=== PATIENT | female | born 1960 ===

== ENCOUNTER 2016-05-18 07:38 | Day surgery (SDC) | payer OTHER ==
[2016-05-18] MEDS ORDERED: ASPIRIN EC 325 MG TAB PO ONE (07:41)
[2016-05-18] MEDS ORDERED: NS 1,000 ML IV ONE (07:41)
[2016-05-18] MEDS ORDERED: DIAZEPAM 5 MG TAB PO ONE (07:41)
[2016-05-18] MEDS ORDERED: diphenhydrAMINE 25 MG CAP PO ONE ×2 (07:41→08:28)
[2016-05-18] MEDS ORDERED: FAMOTIDINE 20 MG TAB PO ONE (07:41)
--- NOTE | 2016-05-18 08:08 | CPEKG ---
Heart Rate: 66 RR Interval: 909 P-R Interval: 156 QRSD Interval: 82 QT Interval: 400 QTC Interval: 420 P Kinmundy: 57 QRS Kinmundy: 71 T Wave Kinmundy: 63 EKG Severity - BORDERLINE ECG - EKG Impression: SINUS RHYTHM EKG Impression: BORDERLINE T ABNORMALITIES, ANT-LAT LEADS Electronically Signed By: James Wilks 19-May-2016 17:00:49
[2016-05-18] MEDS ORDERED: FAMOTIDINE 20 MG TAB ONE (08:28)
[2016-05-18 08:29] LABS: % IMMATURE GRANULYOCYTES 0.2 % (0.0-1.1); ABSOLUTE IMMATURE GRANULOCYTES 0.02 10^3/uL (0.00-0.10); ADD DIFF? NO; ADD MORPH? NO; ADD SCAN? NO; ATYPICAL LYMPHOCYTE FLAG 10 (0-99); FRAGMENT RBC FLAG 0 (0-99); HEMOGLOBIN 13.7 g/dL (12.6-16.3); LEFT SHIFT FLG 0 (0-99); LIPEMIA HEMOLYSIS FLAG 90 (0-99); MEAN CELL HEMOGLOBIN 30.6 pg (27.9-34.1); MEAN CELL HEMOGLOBIN CONCENTR. 34.3 g/dL (32.4-36.7); MEAN CELL VOLUME 89.3 fL (81.5-99.8); PLATELET CLUMPS FLAG 10 (0-99); PLATELET COUNT 236 10^3/uL (150-400); RED BLOOD CELL COUNT 4.48 10^6/uL (4.18-5.33); RED CELL DISTRIBUTION WIDTH 13.5 % (11.5-15.2)
[2016-05-18] MEDS ORDERED: DIAZEPAM 5 MG TAB ONE (08:29)
[2016-05-18] MEDS ORDERED: ASPIRIN EC 81 MG TAB PO ONE (08:30)
[2016-05-18 08:40] LABS: ANION GAP 9 mEq/L (8-16); CALCIUM 9.5 mg/dL (8.5-10.4); CARBON DIOXIDE 29 mEq/l (22-31); CHLORIDE 101 mEq/L (97-110); CHOLESTEROL 215 mg/dL (140-220); CHOLESTEROL/HDL RATIO 6.14 RATIO (1.00-4.44); CREATININE 0.9 mg/dL (0.6-1.0); GLOMERULAR FILTRATION RATE > 60; GLUCOSE 121 mg/dL (70-100); HIGH DENSITY LIPOPROTEIN 35 mg/dL (40-85); LDL/HDL RATIO 4.14 RATIO (1.00-3.22); LOW DENSITY LIPOPROTEIN 145 mg/dL (80-100); MAGNESIUM 2.4 mg/dL (1.6-2.3); NON-HIGH DENSITY LIPOPROTEIN 180 mg/dL (90-129); POTASSIUM 3.8 mEq/L (3.5-5.2); SODIUM 139 mEq/L (134-144); TRIGLYCERIDE 177 mg/dL (35-135); VERY LOW DENSITY LIPOPROTEINS 35 mg/dL (8-25)
[2016-05-18 08:48] LABS: INR 0.99 (0.83-1.16)
[2016-05-18] MEDS ORDERED: MIDAZOLAM 2 MG/2 ML VIAL ONE (09:01)
[2016-05-18] MEDS ORDERED: LIDOCAINE 1% 30 ML SDV ONE (09:01)
[2016-05-18] MEDS ORDERED: HEPARIN 10,000 UNIT/10 ML MDV ONE (09:01)
[2016-05-18] MEDS ORDERED: VERAPAMIL 5 MG/2 ML VIAL ONE (09:01)
[2016-05-18] MEDS ORDERED: IOPAMIDOL (ISOVUE-370) 150 ML BTL IV ONE (09:01)
[2016-05-18] MEDS ORDERED: fentaNYL 100 MCG/2 ML INJ ONE (09:01)
[2016-05-18] MEDS ORDERED: ATROPINE SULFATE 1 MG/10 ML SYR IVP PRN (09:59)
[2016-05-18] MEDS ORDERED: ONDANSETRON 4 MG/2 ML VIAL IVP PRN (09:59)
[2016-05-18] MEDS ORDERED: OXYCODONE/APAP 5/325 TAB PO PRN (09:59)
[2016-05-18] MEDS ORDERED: HYDROCODONE/APAP 5/325 TAB PO PRN (09:59)
[2016-05-18] MEDS ORDERED: NITROGLYCERIN 0.4 MG BTL SL PRN (09:59)
--- NOTE | 2016-05-18 10:05 | PDDXCAT ---
Diagnostic Cath Note - . Date: 05/18/16 Storeroom Attendant: King Indication: CCC Class III and IV angina on medical treatment - Procedure Access: left wrist Procedure: left heart catheterization, coronary angiography, left ventriculogram , right heart catheterization - Materials Left Heart Cath size: 5F Left Heart Cath materials: JL3.5, JR4.0, pigtail Right Heart Cath size: 5F - Findings-Left Heart Catheterization LM: Normal LAD: 100% obstructed within prior stent. 100% occlusion of a large principal diagonal. Left to left, right to left collaterals LCX: unobstructed RCA: 30-40% luminal irregularities proximally. Right coronary artery stent widely patent Ramus: unobstructed EDP: 15 mm of mercury LVEF: 60% Wall motion: normal - Findings-Right Heart Catheterization RA: 8 mm of mercury RV: 52/8 mm of mercury PAOP: 54/20 mm of mercury with systemic pressure 151 AO: 151/80 mm of mercury CO: 6.78 liters/minute CI: 3.08 liters/minute per meter squared Complications: none Estimated blood loss: <50ml Closure method: TR Band Assessment: Severe proximal LAD disease with complete occlusion within prior stent as well as complete occlusion of principal diagonal with collaterals. ( Of note patient is had restenosis within the stent at least once before.). Preserved LV systolic function with normal filling pressures. Systemic hypertension with secondary pulmonary hypertension. Plan: In light of significant symptoms with complete occlusion of the LAD and principal diagonal would recommend 2 vessel coronary artery bypass grafting as principal strategy. Surgical consultation will be obtained. If the patient declines would consider attempt at revascularization percutaneously. I would estimate success at 60%. Plan for abdominal ultrasound to assess for renal artery stenosis in the setting of significant hypertension. Plan for assessment of the abdominal aorta. Continue current medical therapy. Continue aggressive secondary prevention. Patient Problems: Problems Problem Status Onset Hyperlipidemia Acute Pulmonary hypertension associated with systemic disorder Acute Hypertension Acute Status post insertion of drug eluting coronary artery stent Acute Coronary artery disease Acute
--- NOTE | 2016-05-18 16:35 | GCON ---
DATE OF CONSULTATION: 05/18/2016 The patient is seen at the request of Dr. Malik with the patient's permission. IMPRESSION: 1. Severe 2-vessel disease with class 3 angina. 2. Obesity, mild. 3. Chronic obstructive pulmonary disease with longstanding cigarette abuse. 4. Recent history of fluid retention requiring diuretics. RECOMMENDATIONS: This very pleasant lady should undergo coronary artery revascularization to the LA D in the right coronary system. Will attempt to use arterial conduits if able for both vessels. We will also ligate her left atrial appendage. The risks, complications and alternatives were reviewe d at length with the patient and her . All questions were answered. They seemed satisfied w ith our discussion. She will be scheduled for surgery in the next 7 days. CHIEF COMPLAINT: This is a pleasant 56-year-old woman who has had a longstanding cardiac history wi th a stent multiple times to the right and left system. She denies a chronically occluded LAD which is filled by collaterals from the right which has high-grade disease as well. Her circumflex is op en. She was started on hydrochlorothiazide with marked improvement of her dyspnea on exertion by he r family doctor; however, still has exertional chest discomfort and shortness of breath which is new as well as intermittent chest discomfort with exertion. MEDICAL HISTORY: As stated. SURGERIES: Include coronary stents and hysterectomy. MEDICATIONS: Adderall, baby aspirin, Co Q10, Demadex, fish oil, metoprolol and vitamin C. ALLERGIES: Statins which cause a cough and a rash. SOCIAL HISTORY: She has infrequent alcohol abuse. She smokes 1/2 to 1 pack of cigarettes per day. Denies history of COPD and does not wear oxygen. 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 REVIEW OF SYSTEMS: At the present time, she denies all complaints. All 10 systems were interrogate d except for chief complaint. PHYSICAL EXAMINATION: GENERAL: This is a moderately overweight, pleasant 56-year-old female, lying supine. Blood pressure is 140/86, respirations 14. HEENT: Normocephalic, PERRLA, EOMI. NECK: W ithout bruit, adenopathy or thyromegaly. HEART: Rate is regular without murmur, S3 or S4. Echo sh ows good valvular and ventricular function. Please see cath report for details. ABDOMEN: Soft, no ntender. Bowel sounds are active. RECTAL AND GENITAL: Deferred. Pedal pulses are 1+ and symmetri sinai. She has trace pretibial edema. /[id number]/MODL
== END 2016-05-18 14:57 | disposition home or self-care (01) ==
LOC: FCATH 07:38
PROVIDERS: ATTEND Internal Medicine Interventional Cardiology
PROC: B2111ZZ Fluoroscopy of Multiple Coronary Arteries using Low Osmolar Contrast (ICD-10-PCS; principal; 2016-05-18)
PROC: 4A023N8 Measurement of Cardiac Sampling and Pressure, Bilateral, Percutaneous Approach (ICD-10-PCS; principal; 2016-05-18)
PROC: B2151ZZ Fluoroscopy of Left Heart using Low Osmolar Contrast (ICD-10-PCS; principal; 2016-05-18)
DX: T82.855A Stenosis of coronary artery stent, initial encounter (principal); I25.119 Atherosclerotic heart disease of native coronary artery with unspecified angina pectoris; Z72.0 Tobacco use; E66.9 Obesity, unspecified; J44.9 Chronic obstructive pulmonary disease, unspecified; K76.0 Fatty (change of) liver, not elsewhere classified
CPT/HCPCS: 71010; 76770; 93005; 93460; 93880; C1769; J1644; J2250; J3010; Q9967

== ENCOUNTER → 2016-05-21 | Outpatient (CLI) | payer OTHER ==
[~2016-05-21] MED LIST: IOPAMIDOL (ISOVUE 370) 100 ML BTL IV ONE
== END ==
LOC: CIMAGING 13:33
PROVIDERS: ATTEND Internal Medicine Interventional Cardiology
DX: I65.23 Occlusion and stenosis of bilateral carotid arteries (principal); I67.2 Cerebral atherosclerosis; I25.10 Atherosclerotic heart disease of native coronary artery without angina pectoris
CPT/HCPCS: 70498-PO; Q9967

== ENCOUNTER 2016-05-27 06:59 | Inpatient (IN) | payer OTHER ==
[~2016-05-27 06:59] MED LIST changes: +ADENOSINE 6 MG/2 ML VIAL ONE; +ALBUMIN 5% 250 ML BOTTLE IV ONE; +AMINOCAPROIC ACID 5 GM/20 ML VIAL IV ONE; +AMINOCAPROIC ACID 5 GM/20 ML VIAL ONE; +AMIODARONE HCL 150 MG/3 ML VIAL ONE; +CALCIUM CHLORIDE 1 GM/10 ML INJ ONE; +CITRATE DEXTROSE SOLN 500 ML BAG MISC ONE; +CITRATE DEXTROSE SOLN 500 ML BAG ONE; +DOPamine/DEXTROSE/250 ML BAG IV ONE; +HEPARIN 10,000 UNIT/10 ML MDV ONE; +INSULIN REGULAR HUMAN 100 UNIT in NS 100 ML IV ONE; -IOPAMIDOL (ISOVUE 370) 100 ML BTL IV ONE; +LIDOCAINE 1% 5 ML SDV ID PRN; +LIDOCAINE 2% 100 MG/5 ML SYR ONE; +MAGNESIUM SULFATE 1 GM/2 ML VIAL ONE; +MANNITOL 25% 12.5 GM/50 ML VIAL IV ONE; +MILRINONE/DEXTROSE/100 ML BAG IV ONE; +MUPIROCIN 2% 22 GM OINT NS ONE; +NA BICARBONATE 50 MEQ/50 ML VIAL ONE; +NOREPINEPHRINE BITARTRATE 16 MG in NS 250 ML IV ONE; +NS 1,000 ML IV ONE; +PHENYLEPHRINE HCL 50 MG in NS 250 ML IV ONE; +POTASSIUM Cl (KCl) 20 MEQ/50 ML BAG IV ONE; +PROTAMINE SULFATE 50 MG/5 ML VIAL IVP ONE; +SODIUM BICARBONATE 20 MEQ, LIDOCAINE 1% 10 ML in NORMOSOL-R 1,000 ML MISC ONE; +VERAPAMIL 5 MG, NITROGLYCERIN 2.5 MG, HEPARIN 500 UNIT, SODIUM BICARBONATE 0.2 MEQ in L... MISC ONE; +ceFAZolin 1 GM VIAL ONE; +ceFAZolin 2 GM/DEXTROSE 100 ML IV ONE; +methylPREDNISolone SOD SUCC 1 GM/8 ML VIAL ONE; +niCARdipine/NACL 200 ML IV ONE; +niCARdipine/NACL/200 ML BAG IV ONE
[2016-05-27] MEDS ORDERED: SKIN ADHESIVE (DERMABOND) 1 EACH TP ONE ×2 (07:31→12:11)
[2016-05-27] MEDS ORDERED: LIDOCAINE 1% 2 ML INJ ONE (07:32)
[2016-05-27] MEDS ORDERED: VERAPAMIL 5 MG/2 ML VIAL ONE (07:32)
[2016-05-27] MEDS ORDERED: PAPAVERINE HCL 60 MG/2 ML SDV ONE (07:32)
[2016-05-27] MEDS ORDERED: LR 1,000 ML IV ONE (07:54)
[2016-05-27] MEDS ORDERED: LIDOCAINE 1% 5 ML SDV ID PRN (07:54)
[2016-05-27] MEDS ORDERED: fentaNYL 250 MCG/5 ML INJ ONE ×2 (08:00)
[2016-05-27] MEDS ORDERED: PROPOFOL/EMULSION 500 MG/50 ML BOTTLE IV ONE (08:02)
[2016-05-27] MEDS ORDERED: MIDAZOLAM 2 MG/2 ML VIAL ONE ×2 (08:04→08:08)
[2016-05-27] MEDS ORDERED: MINERAL OIL 10 ML VIAL TP ONE (09:08)
[2016-05-27] MEDS ORDERED: SUGAMMADEX SODIUM 200 MG/2 ML VIAL IVP ONE ×2 (11:47→11:48)
[2016-05-27] MEDS ORDERED: ESMOLOL HCL 100 MG/10 ML VIAL IV ONE (11:48)
[2016-05-27] MEDS ORDERED: PHENYLEPHRINE HCL 100 MCG/ML SYR ONE (11:48)
[2016-05-27] MEDS ORDERED: ROCURONIUM 100 MG/10 ML VIAL ONE (11:48)
[2016-05-27] MEDS ORDERED: HYDROmorphONE/DILAUDID 2 MG/ML INJ ONE (11:59)
[2016-05-27] MEDS ORDERED: SODIUM CL NASAL 45 ML BTL EACHNARE PRN (12:13)
[2016-05-27] MEDS ORDERED: MAGNESIUM SULF 2 GM/WATER 50 ML IV ONE (12:13)
[2016-05-27] MEDS ORDERED: ACETAMINOPHEN 650 MG SUPP PR PRN (12:13)
[2016-05-27] MEDS ORDERED: METOCLOPRAMIDE 10 MG/2 ML VIAL IVP PRN (12:13)
[2016-05-27] MEDS ORDERED: CEPACOL LOZENGE PO PRN (12:13)
[2016-05-27] MEDS ORDERED: MEPERIDINE 25 MG/ML SYR IVP PRN (12:13)
[2016-05-27] MEDS ORDERED: ALBUMIN 5% 250 ML IV PRN (12:13)
[2016-05-27] MEDS ORDERED: MAGNESIUM HYDROXIDE 30 ML UDCUP PO PRN (12:13)
[2016-05-27] MEDS ORDERED: D50W 25 GM/50 ML SYR IVP PRN (12:13)
[2016-05-27] MEDS ORDERED: BISACODYL 10 MG SUPP PR PRN (12:13)
[2016-05-27] MEDS ORDERED: ONDANSETRON 4 MG/2 ML VIAL IVP PRN (12:13)
[2016-05-27] MEDS ORDERED: LACTULOSE 20 GM/30 ML UDCUP PO PRN (12:13)
[2016-05-27] MEDS ORDERED: PANTOPRAZOLE SODIUM 40 MG in NS 100 ML IV ONE (12:13)
[2016-05-27] MEDS ORDERED: NS 1,000 ML IV SCH (12:15)
[2016-05-27] MEDS ORDERED: IPRATROPIUM/ALBUTEROL 3 ML DEYVIAL IH PRN (12:21)
[2016-05-27] MEDS ORDERED: INSULIN REGULAR HUMAN 100 UNIT in NS 100 ML IV SCH (12:30)
--- NOTE | 2016-05-27 12:39 | POSTOPPROG ---
Post Op Note Date of Operation: 05/27/16 Surgeon: Juan Gonzalez Mussel Farmer: Jossue Anesthesiologist: Temo Anesthesia: GET(General Endotracheal) Pre-op Diagnosis: ASHD Procedure: CAB 3 Bautista-Lad, SVG-Dg, Pda Atriclip AZUL, EVH Inf/Abcess present in the surg proc area at time of surgery?: No EBL: 50-100 Drains: Other (2 blakes)
[2016-05-27] MEDS: POTASSIUM Cl (KCl) 50 ML IV PRN ×3 (13:14→16:00)
[2016-05-27] MEDS: MUPIROCIN 2% 22 GM OINT NS SCH ×3 (13:17→20:24)
--- NOTE | 2016-05-27 13:31 | CPEKG ---
Heart Rate: 79 RR Interval: 759 P-R Interval: 156 QRSD Interval: 84 QT Interval: 428 QTC Interval: 491 P Ribera: 72 QRS Ribera: 53 T Wave Ribera: 30 EKG Severity - BORDERLINE ECG - EKG Impression: SINUS RHYTHM EKG Impression: TALL R WAVE IN V2, CONSIDER RVH OR PMI EKG Impression: BORDERLINE PROLONGED QT INTERVAL EKG Impression: COMPARED WITH 18 MAY 2016, CHANGE IN R WAVE PROGRESSION. QT INTERVAL LONGER Electronically Signed By: Pauline Neri 27-May-2016 15:24:49
--- NOTE | 2016-05-27 13:35 | GOP ---
[f rep st] OPERATIVE REPORT DATE OF OPERATION: 05/27/2016 SURGEON: Juan Gonzalez DO TRACKMAN: TRACE Payton ANESTHESIOLOGIST: Geronimo Plascencia M.D. PREOPERATIVE DIAGNOSIS: Arteriosclerotic heart disease. POSTOPERATIVE DIAGNOSIS: Arteriosclerotic heart disease. PROCEDURE PERFORMED: FINDINGS: Patient is noted to have a completely occluded LAD and diagonal with poor collateral flow with preserved LV function. She also had multiple sequential lesions in the right coronary artery with an in-stent stenosis of approximately 40%. LV function was moderately impaired. She was consented for surgery, brought to the operating room, intubated, monitoring lines were place d. She was prepped and draped in sterile classical manner. Sternotomy was performed. The mammary and vein were harvested endoscopically from the left thigh by TRACE Payton. She first assisted thro ughout the procedure. The patient was heparinized. After the mammary was harvested, she was cannul ated in the standard fashion. Cardiopulmonary bypass was begun. A cardioplegic arrest was obtained with antegrade cardioplegia, retrograde cardioplegia, and topical hypothermia as well as systemic c ooling. Initially, left atrial appendage was ligated with an AtriClip size 40 mm with good flush oc clusion at the base of the appendage. We then proceeded with grafting the PDA, which was a 1.8 mm v essel and a proximal PDA after the heavily calcified AV groove, right coronary artery, was identifie d. Proximal anastomosis was completed to the ascending aorta in standard fashion. We then proceede d with grafting a diagonal which was a 1.8-2 mm vessel with diffuse disease. That proximal anastomo sis was brought off the ascending aorta as well in the standard fashion with the cross-clamp on. Re warming was begun. The mammary was grafted to the distal 3rd of the LAD, which was a good quality 2 .5 mm vessel. The mammary was an excellent vessel with brisk flow. It was tacked to the epicardium . Crossclamp was removed with suction on the ascending aortic vent. Spontaneous cardiac activity w as noted to resume. The patient was rewarmed, weaned from bypass. Heparin was reversed with protam ine. The cannula was removed and oversewn. 2 ventricular pacing wires, 1 left pleural, 1 mediastin al drain were placed. The thymic fat and pericardium were closed. Chest was closed in standard fas hion. The patient was returned to ICU in stable condition. DESCRIPTION OF PROCEDURE: OPERATION PERFORMED: 1. Coronary artery bypass grafting x3 with left internal mammary artery to the LAD, saphenous vein graft to the diagonal, and saphenous vein graft to the PDA. 2. Endoscopic vein harvest by TRACE Payton. 3. AtriClip to the left atrial appendage. /[id number]/MODL
[2016-05-27] MEDS ORDERED: ceFAZolin 2 GM/DEXTROSE 100 ML IV SCH (14:00)
[2016-05-27 15:15] LABS: BASE EXCESS -1.9 mEq/L (-2.5-2.5); BICARBONATE 24 mEq/L (22-26); MEASURED OXYGEN SATURATION 91 % (92-95); PCO2 48 mmHg (34-38); PO2 70 mmHg (65-75); TCO2 25 mEq/L (23-27)
[2016-05-27] MEDS: fentaNYL 100 MCG/2 ML INJ IVP PRN ×4 (17:20→21:56)
[2016-05-27] MEDS ORDERED: fentaNYL 25 MCG PATCH TD SCH (17:35)
[2016-05-27] MEDS: HYDROCODONE/APAP 5/325 TAB PO PRN (19:14)
[2016-05-27] MEDS: ceFAZolin 2 GM/DEXTROSE 100 ML IV SCH (20:15)
[2016-05-27 22:17] LABS: HEMATOCRIT 34.1 % (38.0-47.0); HEMOGLOBIN 11.1 g/dL (12.6-16.3); MEAN CELL HEMOGLOBIN 29.8 pg (27.9-34.1); MEAN CELL HEMOGLOBIN CONCENTR. 32.6 g/dL (32.4-36.7); MEAN CELL VOLUME 91.7 fL (81.5-99.8); RED BLOOD CELL COUNT 3.72 10^6/uL (4.18-5.33)
[2016-05-28] MEDS: HYDROCODONE/APAP 5/325 TAB PO PRN ×6 (00:06→23:32)
[2016-05-28] MEDS: fentaNYL 100 MCG/2 ML INJ IVP PRN ×2 (01:17→05:54)
[2016-05-28] MEDS: ceFAZolin 2 GM/DEXTROSE 100 ML IV SCH ×3 (03:18→20:37)
[2016-05-28 04:56] LABS: % IMMATURE GRANULYOCYTES 0.5 % (0.0-1.1); ABSOLUTE IMMATURE GRANULOCYTES 0.11 10^3/uL (0.00-0.10); ADD DIFF? NO; ADD MORPH? NO; ADD SCAN? NO; ATYPICAL LYMPHOCYTE FLAG 0 (0-99); FRAGMENT RBC FLAG 0 (0-99); HEMOGLOBIN 10.4 g/dL (12.6-16.3); LEFT SHIFT FLG 0 (0-99); LIPEMIA HEMOLYSIS FLAG 80 (0-99); MEAN CELL HEMOGLOBIN 30.1 pg (27.9-34.1); MEAN CELL HEMOGLOBIN CONCENTR. 32.5 g/dL (32.4-36.7); MEAN CELL VOLUME 92.5 fL (81.5-99.8); MEAN PLATELET VOLUME 11.5 fL (8.7-11.7); PLATELET CLUMPS FLAG 0 (0-99); PLATELET COUNT 204 10^3/uL (150-400); RED BLOOD CELL COUNT 3.46 10^6/uL (4.18-5.33); RED CELL DISTRIBUTION WIDTH 14.4 % (11.5-15.2)
[2016-05-28 05:02] LABS: ANION GAP 6 mEq/L (8-16); CALCIUM 8.6 mg/dL (8.5-10.4); CARBON DIOXIDE 25 mEq/l (22-31); CHLORIDE 112 mEq/L (97-110); CREATININE 0.8 mg/dL (0.6-1.0); GLOMERULAR FILTRATION RATE > 60; GLUCOSE 118 mg/dL (70-100); POTASSIUM 4.2 mEq/L (3.5-5.2); SODIUM 143 mEq/L (134-144)
[2016-05-28] MEDS: HEPARIN 5,000 UNIT/0.5 ML SYR SC SCH ×3 (05:55→21:15)
--- NOTE | 2016-05-28 07:14 | SOAPPROG ---
SOAP Progress Note Assessment/Plan: Assessment: POD#1 CABG x 3 (DUSTIN-LAD, SV-D1, SV-PDA), prophylactic AtriClip LLAA , EVH LLE Sx CAD/recurrent ISR w preserved LV systolic fx - s/p CABG. Stable early postop course. Extubated without incident. No vasoactive support. No tachycardia or backup pacing. Secondary prevention with ASA, BB as allowed by BP and hypolipidemics when eating well. Hx of statin intolerance. Suspected metabolic syndrome - obesity, prediabetes, dyslipidemia. Postop hyperglycemia managed with insulin gtt. Transition to SSI as per protocol. Diabetic counseling/IM consult planned. Acute expected blood loss anemia - Stable. No blood transfusions. VTE prophylaxis with SQ hep. ALAN on CPAP - Stable. Home appliance in use. Current everyday smoker - Up to 1ppd x 40 yrs. Motivated to quit. Cessation aids declined for now. Asx carotid disease - 60% LISA, 70-80% LICA stenoses. No apparent postop neuro deficits. Secondary prevention as per CAD. Surveillance per cards/PCP. HTN - with probable renal artery stenosis by preop US. Stent consideration once recovered from surgery. Diastolic CHF - Medically compensated on demadex. No significant volume overload. Diuresis as appropriate. Plan: Routine POD#1 orders re lines, drains, orals and mobility. Optimize pain management. Possible tx to PCU later today. 05/28/16 07:13 Subjective: Hurts all over. Struggling to breathe deeply. Reluctant to cough. Objective: Vital Signs Temp Pulse Resp BP Pulse Ox 37.5 C 85 20 120/61 94 05/28/16 05:00 05/28/16 06:00 05/28/16 06:00 05/28/16 06:00 05/28/16 06:00 Laboratory Results 05/28/16 04:30 05/28/16 04:30 05/27/16 05/28/16 05/29/16 05:59 05:59 05:59 Intake Total 1612 Output Total 1800 Balance -188 Stable sats on CPAP. HR and BP controlled. Balanced I/Os. No sig CTOP. CXR-> mild pulm vasc congestion, CTs in good position, minimal basilar atelectasis Labs ok. Physical Exam - Physical Exam General Appearance: alert, mild distress Respiratory: lungs clear (grossly), other (Blakes x 2 y-d to pleurovac, serosang drainage, no air leak) Cardiac/Chest: regular rate, rhythm, other (Sternum grossly stable. Sternotomy CDI. Vwires intact) Abdomen: normal bowel sounds, non-tender, soft Skin: warm/dry Extremities: swelling (1+ gen), other (LLE venotomy CDI. Tract along thigh diffusely ecchymotic but soft.) ICD10 Worksheet Patient Problems: Problems Problem Status Onset Acute blood loss anemia Acute S/P CABG x 3 Acute ~05/27/16 Diastolic CHF, chronic Chronic ALAN on CPAP Chronic Obesity (BMI 30-39.9) Chronic Coronary artery disease Chronic Hyperlipidemia Chronic Hypertension Chronic Pulmonary hypertension associated with systemic disorder Chronic
[2016-05-28 08:15] LABS: CALCULATED OXYGEN SATURATION 93 % (92-95)
[2016-05-28] MEDS ORDERED: fentaNYL 50 MCG PATCH TD ONE (08:15)
[2016-05-28] MEDS: PANTOPRAZOLE SODIUM 40 MG TAB PO SCH (08:31)
[2016-05-28] MEDS: ASCORBIC ACID 500 MG TAB PO SCH (08:31)
[2016-05-28] MEDS: ASPIRIN 81 MG CHEWABLE TAB PO SCH (08:31)
[2016-05-28] MEDS ORDERED: ASPIRIN 81 MG CHEWABLE TAB TUBE PRN (09:00)
[2016-05-28] MEDS ORDERED: ASPIRIN 81 MG CHEWABLE TAB PO SCH (09:00)
[2016-05-28] MEDS ORDERED: FUROSEMIDE 20 MG/2 ML VIAL IVP ONE (09:40)
[2016-05-28] MEDS ORDERED: POTASSIUM CL 10 MEQ TAB PO ONE (09:41)
[2016-05-28] MEDS ORDERED: FUROSEMIDE 20 MG/2 ML VIAL ONE (10:06)
[2016-05-28] MEDS ORDERED: POTASSIUM CL 10 MEQ TAB ONE (10:06)
[2016-05-28] MEDS: MUPIROCIN 2% 22 GM OINT NS SCH ×2 (10:40→20:41)
[2016-05-28] MEDS ORDERED: traMADol 50 MG TAB PO PRN (11:52)
[2016-05-28] MEDS: oxyCODONE IR 5 MG TAB PO PRN ×2 (12:31→18:41)
[2016-05-28] MEDS ORDERED: METOPROLOL SUCCINATE XR 25 MG TAB PO ONE (12:55)
[2016-05-28] MEDS: INSULIN LISPRO 100 UNIT/ML SC SCH ×2 (12:56→17:33)
[2016-05-28] MEDS: METOPROLOL TARTRATE 25 MG TAB PO SCH ×2 (12:59→20:37)
[2016-05-28 13:23] LABS: POTASSIUM 4.3 mEq/L (3.5-5.2)
[2016-05-28] MEDS ORDERED: KETOROLAC 30 MG/1 ML SDV ONE (13:36)
[2016-05-28] MEDS ORDERED: KETOROLAC 30 MG/1 ML SDV IVP ONE (14:00)
[2016-05-28] MEDS: ACETAMINOPHEN 325 MG TAB PO PRN (18:42)
[2016-05-28] MEDS: SENNOSIDES/DOCUSATE SODIUM TAB PO SCH (20:37)
[2016-05-29] MEDS: ceFAZolin 2 GM/DEXTROSE 100 ML IV SCH (04:41)
[2016-05-29 05:01] LABS: % IMMATURE GRANULYOCYTES 0.5 % (0.0-1.1); ABSOLUTE IMMATURE GRANULOCYTES 0.12 10^3/uL (0.00-0.10); ADD DIFF? NO; ADD MORPH? NO; ADD SCAN? NO; ATYPICAL LYMPHOCYTE FLAG 0 (0-99); FRAGMENT RBC FLAG 0 (0-99); HEMATOCRIT 31.9 % (38.0-47.0); HEMOGLOBIN 10.4 g/dL (12.6-16.3); LEFT SHIFT FLG 0 (0-99); LIPEMIA HEMOLYSIS FLAG 80 (0-99); MEAN CELL HEMOGLOBIN 30.5 pg (27.9-34.1); MEAN CELL HEMOGLOBIN CONCENTR. 32.6 g/dL (32.4-36.7); MEAN CELL VOLUME 93.5 fL (81.5-99.8); MEAN PLATELET VOLUME 11.5 fL (8.7-11.7); PLATELET CLUMPS FLAG 0 (0-99); PLATELET COUNT 232 10^3/uL (150-400); RED BLOOD CELL COUNT 3.41 10^6/uL (4.18-5.33); RED CELL DISTRIBUTION WIDTH 14.6 % (11.5-15.2)
[2016-05-29 05:15] LABS: ANION GAP 8 mEq/L (8-16); CALCIUM 8.7 mg/dL (8.5-10.4); CARBON DIOXIDE 23 mEq/l (22-31); CHLORIDE 106 mEq/L (97-110); CREATININE 1.1 mg/dL (0.6-1.0); GLOMERULAR FILTRATION RATE 51; GLUCOSE 134 mg/dL (70-100); POTASSIUM 4.8 mEq/L (3.5-5.2); SODIUM 137 mEq/L (134-144)
[2016-05-29] MEDS: HYDROCODONE/APAP 5/325 TAB PO PRN (05:58)
[2016-05-29] MEDS: HEPARIN 5,000 UNIT/0.5 ML SYR SC SCH ×3 (05:59→21:52)
[2016-05-29] MEDS ORDERED: FUROSEMIDE 40 MG/4 ML VIAL IVP ONE (07:06)
[2016-05-29] MEDS: METOPROLOL TARTRATE 25 MG TAB PO SCH ×2 (08:19→21:52)
[2016-05-29] MEDS: OMEGA-3 FATTY ACIDS 1,000 MG CAP PO SCH (08:19)
[2016-05-29] MEDS: ASPIRIN 81 MG CHEWABLE TAB PO SCH (08:19)
[2016-05-29] MEDS: PANTOPRAZOLE SODIUM 40 MG TAB PO SCH (08:19)
[2016-05-29] MEDS: ASCORBIC ACID 500 MG TAB PO SCH (08:19)
[2016-05-29] MEDS: INSULIN LISPRO 100 UNIT/ML SC SCH ×3 (08:20→19:32)
[2016-05-29] MEDS: POLYETHYLENE GLYCOL 3350 17 GM PKT PO SCH (08:20)
[2016-05-29] MEDS: SENNOSIDES/DOCUSATE SODIUM TAB PO SCH ×2 (08:20→21:52)
[2016-05-29] MEDS ORDERED: Herbals/Supplements -Info Only PO SCH (09:00)
--- NOTE | 2016-05-29 09:00 | SOAPPROG ---
SOAP Progress Note Assessment/Plan: POD#2 CABG x 3 (DUSTIN-LAD, SV-D1, SV-PDA), prophylactic AtriClip LLAA, EVH LLE Sx CAD/recurrent ISR w preserved LV systolic fx - s/p CABG. Stable early postop course. Extubated without incident. No vasoactive support. No tachycardia or backup pacing. Secondary prevention with ASA, BB as allowed by BP and hypolipidemics when eating well. Hx of statin intolerance. Suspected metabolic syndrome - A1c 6.5, obesity, prediabetes, dyslipidemia. Postop hyperglycemia managed with insulin gtt. Transition to SSI as per protocol with occasional corrective insulin administered. IM consult held for now, plan for outpatient management. Acute expected blood loss anemia - Stable. No blood transfusions. VTE prophylaxis with SQ hep. ALAN on CPAP - Stable. Home appliance in use. Current everyday smoker - Up to 1ppd x 40 yrs. Motivated to quit. Cessation aids declined for now. Asx carotid disease - 60% LISA, 70-80% LICA stenoses. No apparent postop neuro deficits. Secondary prevention as per CAD. Surveillance per cards/PCP. HTN - with probable renal artery stenosis by preop US. Stent consideration once recovered from surgery. Diastolic CHF - Medically compensated on demadex. No significant volume overload. Diuresis as appropriate. Subjective: c/o incisional pain, some dyspnea. Objective: Vital Signs Temp Pulse Resp BP Pulse Ox 36.4 C 110 H 21 H 149/79 H 90 L 05/29/16 08:17 05/29/16 08:19 05/29/16 08:17 05/29/16 08:19 05/29/16 08:17 Laboratory Results 05/29/16 04:45 05/29/16 04:45 05/28/16 05/29/16 05/30/16 05:59 05:59 05:59 Intake Total 1612 1090 500 Output Total 1800 437 400 Balance -188 653 100 Physical Exam - Physical Exam General Appearance: WD/WN, alert, no apparent distress, obese EENT: No scleral icterus (R), No scleral icterus (L) Neck: normal inspection Respiratory: No respiratory distress Cardiac/Chest: regular rate, rhythm Abdomen: non-tender, soft Skin: normal color, warm/dry Extremities: pedal edema Neuro/Psych: no motor/sensory deficits, alert, normal mood/affect, oriented x 3 ICD10 Worksheet Patient Problems: Problems Problem Status Onset Acute blood loss anemia Acute S/P CABG x 3 Acute ~05/27/16 Diastolic CHF, chronic Chronic ALAN on CPAP Chronic Obesity (BMI 30-39.9) Chronic Coronary artery disease Chronic Hyperlipidemia Chronic Hypertension Chronic Pulmonary hypertension associated with systemic disorder Chronic
[2016-05-29] MEDS ORDERED: TORSEMIDE 20 MG TAB PO SCH (10:00)
[2016-05-29] MEDS: oxyCODONE IR 5 MG TAB PO PRN ×3 (10:38→19:31)
[2016-05-29] MEDS: ACETAMINOPHEN 325 MG TAB PO PRN ×3 (10:38→19:31)
[2016-05-29] MEDS: guaiFENesin 600 MG TAB.ER PO SCH ×2 (10:39→21:52)
[2016-05-29] MEDS: BUDESONIDE 0.5 MG/2 ML AMPUL.NEB IH SCH ×2 (11:00→20:52)
[2016-05-29] MEDS: LEVALBUTEROL 1.25 MG/3 ML DEYVIAL IH SCH ×3 (11:00→20:52)
--- NOTE | 2016-05-29 18:52 | GCON ---
[f rep st] CONSULTATION PULMONARY CONSULTATION DATE OF CONSULTATION: 05/29/2016 REASON FOR CONSULTATION: Congestion, hypoxemia, post coronary artery bypass grafting. HISTORY: The patient is a 56-year-old who is known to me from the intensive care unit. She was aly ewhat acidotic from a respiratory standpoint postoperatively and had a delayed extubation. However, after extubation she did well, and was discharged from the intensive care unit to the PCU. I am as ked to consult on her secondary to ongoing hypoxemia and congestion. The patient does have a histor y of tobacco use. She was smoking at least 1/2 pack of cigarettes per day prior to her surgery and has smoked up to a pack per day in the past. Estimated pack use is probably [id number]. She iván ny has chronic obstructive pulmonary disease, but has not been on inhalers, is not on oxygen. She does have sleep apnea and uses CPAP. There is a history of obesity and likely restrictive disease a s well. She did well with surgery. She was up and ambulatory the next day. However, she remains somewhat h ypoxemic, especially when in bed or sleeping. She has been on as high as 10 L of oxygen today and i s currently on 5 L. She is up walking in the bellamy. She does have a loose cough. She denies signif icant chest pain. PAST MEDICAL HISTORY: Remarkable for the issues as outlined above and includes coronary artery dise ase, diastolic dysfunction, modest pulmonary hypertension, obstructive sleep apnea; on CPAP, obesity , systemic hypertension, and hyperlipidemia. MEDICATIONS: On admission included torsemide, ranitidine, metoprolol, aspirin, and Adderall. PAST SURGICAL HISTORY: Current coronary artery bypass grafting done on 05/27. She had a 3-vessel g raft using the internal mammary and saphenous veins. Her left atrial appendage was clipped. She torres s a history of previous stenting. SOCIAL HISTORY: Patient is , with a supportive and daughter. She works in [employer] for [employer]. She apparently travels frequently. Significant alcohol is negative. ALLERGIES: Statins. FAMILY HISTORY: Noncontributory. REVIEW OF SYSTEMS: She denies known lung disease, previous thromboembolic disease, or known renal d isease. She has some reflux for which she takes H2 blockers. A 10-point review of systems is other lyon negative. PHYSICAL EXAMINATION: GENERAL: Reveals a woman who is somewhat overweight, walking with nursing as sistance in the bellamy without significant difficulty. VITAL SIGNS: Blood pressure is 150/80, heart r ate 100, on 5 L saturations are 92%. She is afebrile. Oxygen is turned up to 10 L with ambulation. HEENT: Remarkable only for the nasal cannula. CHEST: Reveals decreased breath sounds bilaterall y with rales and bronchial changes at the bases. There are no wheezes currently. There are some rh onchi with cough. HEART: Regular in rate and rhythm. CHEST: Postoperative. Bulb drains are in p lace. ABDOMEN: Overweight, soft, nontender. Bowel sounds are present. There is no obvious organo megaly. EXTREMITIES: Reveal trace plus edema. NEUROLOGIC: Nonfocal. Intact. DIAGNOSTIC STUDIES: Chest x-rays show hypoventilatory changes with bibasilar atelectasis or infiltr ate, left greater than right. There is a small right pleural effusion. Lines and tubes appear to b e in appropriate position. LABORATORY DATA: White blood cell count is 22,000, hematocrit 32, platelets are normal. Basic meta bolic panel was fairly unremarkable. BUN 28, creatinine 1.1. Glucoses have ranged between 130 and 170. ASSESSMENT: 1. Postoperative hypoxemia. This is associated with persistent bibasilar atelectasis and hypoventi lation postoperatively. She does have some pulmonary congestion without evidence of infection. She also likely has a component of underlying COPD. This may be relatively mild. Bronchodilator thera pies and mucolytics will be initiated along with inhaled steroids. Mucolytics will be continued. I nspiratory spirometry will be encouraged. 2. Coronary artery disease, status post 3-vessel coronary artery bypass grafting. She is doing wel l postoperatively. 3. History of other medical problems, as outlined above. PLAN/RECOMMENDATIONS: Bronchopulmonary therapies will be added, i.e. ambulation, etc., will all be beneficial. Coughing and getting rid of mucus will be helpful. She is to wear her CPAP at night an d with naps. When she is lying down, otherwise, she should be semirecumbent. Other medications mojgan l be continued. The importance of stopping smoking was discussed with the patient. After discharge , outpatient pulmonary followup at some point will be arranged. I will be happy to follow the patient with you. /[id number]/MODL
--- NOTE | 2016-05-29 19:02 | GCON ---
[f rep st] CONSULTATION DATE OF CONSULTATION: 05/29/2016 HISTORY OF PRESENT ILLNESS: The patient is a pleasant, 56-year-old female with history of coronary disease and metabolic syndrome. She is postop day #2 following a 3-vessel CABG. PAST MEDICAL HISTORY: Regarding hyperglycemia and metabolic syndrome. The patient has hemoglobin A 1c of 6.5. She has never been told she has hyperglycemia. She did require insulin drip following s urgery. She is also known to have fatty liver, although there are no LFTs here. Reviewing them in the past, show normal LFTs. She denies known history of diabetes. Her other complaint she does note she has fatty liver. REVIEW OF SYSTEMS: Complete 10-point review of systems conducted negative as in the HPI. PAST MEDICAL HISTORY: Of coronary artery disease. Fatty liver. Left-sided internal carotid stenos is. Possible left renal artery stenosis. ALLERGIES: STATINS. HOME MEDICATIONS: Fish oil, and Demadex. SOCIAL HISTORY: No tobacco. Lives in [place]. Family present at bedside. FAMILY HISTORY: Mother had diabetes. PHYSICAL EXAM: VITAL SIGNS: Temp 36.5, blood pressure 134/81, pulse 93, breathing 19 times a juan te, 91% on 5 L. GENERAL: No acute distress. HEENT: Sclerae anicteric. Oropharynx clear. Mucous membranes are moist. NECK: Supple. No lymphadenopathy or JVD. LUNGS: Clear to auscultation bassam aterally. HEART: S1, S2. ABDOMEN: Soft, nontender, nondistended. EXTREMITIES: Lower extremitie s show trace edema bilaterally. Calves nontender. SKIN: Without rash. NEUROLOGIC: Nonfocal. IMAGING: Chest x-ray, interpreted by me, shows atelectasis. I discussed the case with TRACE Hankins for Cardiothoracic surgery. ASSESSMENT/PLAN: 1. This is a 56-year-old female, status post coronary artery bypass graft: Post coronary artery by pass graft management per CT Surgery. 2. Hyperglycemia: The patient is likely prediabetes and metabolic syndrome. Will start metformin 5 00 daily. 3. Carotid stenosis: She may need a carotid endarterectomy at some point. We will follow. She torres s no neurologic signs at this time. 4. Pain appears well managed. Continue oral pain medicines. 5. Prophylaxis: She is on subcu heparin three times daily. DISPOSITION: Inpatient status. Thank you for this consultation. Hospital Medicine will follow. /[id number]/MODL
[2016-05-30] MEDS: LEVALBUTEROL 1.25 MG/3 ML DEYVIAL IH SCH ×4 (05:34→21:51)
[2016-05-30] MEDS: ACETAMINOPHEN 325 MG TAB PO PRN ×2 (05:45→21:16)
[2016-05-30] MEDS: HEPARIN 5,000 UNIT/0.5 ML SYR SC SCH (05:45)
[2016-05-30] MEDS: oxyCODONE IR 5 MG TAB PO PRN (05:45)
[2016-05-30 06:27] LABS: ANION GAP 7 mEq/L (8-16); CALCIUM 8.6 mg/dL (8.5-10.4); CARBON DIOXIDE 27 mEq/l (22-31); CHLORIDE 102 mEq/L (97-110); CREATININE 0.8 mg/dL (0.6-1.0); GLOMERULAR FILTRATION RATE > 60; GLUCOSE 112 mg/dL (70-100); POTASSIUM 4.5 mEq/L (3.5-5.2); SODIUM 136 mEq/L (134-144)
[2016-05-30] MEDS ORDERED: FUROSEMIDE 40 MG/4 ML VIAL IVP ONE (08:00)
[2016-05-30] MEDS ORDERED: POTASSIUM CL 10 MEQ TAB PO ONE (09:00)
[2016-05-30] MEDS: SENNOSIDES/DOCUSATE SODIUM TAB PO SCH ×2 (09:02→21:10)
[2016-05-30] MEDS: ASCORBIC ACID 500 MG TAB PO SCH (09:02)
[2016-05-30] MEDS: ASPIRIN 81 MG CHEWABLE TAB PO SCH (09:02)
[2016-05-30] MEDS: guaiFENesin 600 MG TAB.ER PO SCH ×2 (09:02→21:10)
[2016-05-30] MEDS: PANTOPRAZOLE SODIUM 40 MG TAB PO SCH (09:03)
[2016-05-30] MEDS: INSULIN LISPRO 100 UNIT/ML SC SCH ×4 (09:03→19:27)
[2016-05-30] MEDS: metFORMIN HCL 500 MG TAB PO SCH (09:03)
[2016-05-30] MEDS: METOPROLOL TARTRATE 25 MG TAB PO SCH ×2 (09:03→21:10)
[2016-05-30] MEDS: OMEGA-3 FATTY ACIDS 1,000 MG CAP PO SCH (09:03)
[2016-05-30] MEDS: POLYETHYLENE GLYCOL 3350 17 GM PKT PO SCH (09:09)
--- NOTE | 2016-05-30 09:16 | SOAPPROG ---
SOAP Progress Note Assessment/Plan: Assessment: POD#3 CABG x 3 (DUSTIN-LAD, SV-D1, SV-PDA), prophylactic AtriClip LLAA , EVH LLE Sx CAD/recurrent ISR w preserved LV systolic fx - s/p CABG. Hemodynamically stable early postop course. Extubated without incident. Left pleural tube and Vwire out. Secondary prevention with ASA, BB as allowed by BP and hypolipidemics when eating well. Hx of multi-statin intolerance. Consider PCSK9 inhibitor. Suspected metabolic syndrome - obesity, prediabetes, dyslipidemia. Postop hyperglycemia managed with insulin gtt. Transition to SSI as per protocol. IM consulted for diabetic counseling and oversight. Low dose metformin started. Acute expected blood loss anemia - Stable. No blood transfusions. VTE prophylaxis with SQ hep. Acute on chronic hypoxemic respiratory insufficiency (hx ALAN on CPAP, residential smoker, dCHF) - Recurrent nocturnal desats on home CPAP. Multifactorial: volume overload, habitus, narc analgesia/depressed insp effort, difficulty clearing secretions, gastric air... Mucolytics, bronchodilators, inh steroids per pulm. Intensified diuresis and analgesic adjustments planned. Current everyday smoker - Up to 1ppd x 40 yrs. Motivated to quit. Cessation aids declined. Asx carotid disease - 60% LISA, 70-80% LICA stenoses. No apparent postop neuro deficits. Secondary prevention as per CAD. Surveillance per cards/PCP. HTN - with probable renal artery stenosis by preop US. Stent consideration once recovered from surgery. Plan: D/C duragesic patch. Lasix 80mg IV x 1. To cont BID if good response. Scheduled reglan x 24h. RT recs per pulm. ABG and CXR at noon. Possible tx back to ICU if suppl O2 needs remain elevated. 05/28/16 07:13 Subjective: Poor sleep. Hot, multiple breathing treatments, orthopneic. Objective: Vital Signs Temp Pulse Resp BP Pulse Ox 36.7 C 80 28 H 127/72 H 92 05/30/16 08:45 05/30/16 08:45 05/30/16 08:45 05/30/16 08:45 05/30/16 08:45 Laboratory Results 05/29/16 04:45 05/30/16 05:55 05/29/16 05/30/16 05/31/16 05:59 05:59 06:59 Intake Total 1090 1830 Output Total 437 1500.5 Balance 653 329.5 Intermittent desats into 80s on CPAP last noc. Intolerant to BiPAP. Suppl O2 req inc to 15 Lpm. HR and BP ok. I/Os balanced. UOP adequate. Renal fx and lytes stable. WBC remains elev. No temp. CXR neg for focal infiltrate and more c/w pulm edema. O2 req 12-13 Lpm this am. Conversant. Good cough/IS. Able to walk. Physical Exam - Physical Exam General Appearance: alert, no apparent distress (in chair) Respiratory: decreased breath sounds (rt base), crackles (coarse throughout), other (Mediastinal lexi to bulb suction, serous drainage.) Cardiac/Chest: regular rate, rhythm, other (Sternum grossly stable. Sternotomy and LLE venotomy CDI) Abdomen: normal bowel sounds, non-tender, soft Skin: warm/dry Extremities: swelling (1-2+) ICD10 Worksheet Patient Problems: Problems Problem Status Onset Acute blood loss anemia Acute S/P CABG x 3 Acute ~05/27/16 Diastolic CHF, chronic Chronic ALAN on CPAP Chronic Obesity (BMI 30-39.9) Chronic Coronary artery disease Chronic Hyperlipidemia Chronic Hypertension Chronic Pulmonary hypertension associated with systemic disorder Chronic
[2016-05-30] MEDS: BUDESONIDE 0.5 MG/2 ML AMPUL.NEB IH SCH ×2 (09:18→21:50)
[2016-05-30] MEDS: KETOROLAC 15 MG/1 ML SDV IVP PRN ×2 (13:17→21:10)
[2016-05-30] MEDS: FUROSEMIDE 40 MG/4 ML VIAL IVP SCH (16:52)
[2016-05-30] MEDS: POTASSIUM CL 20 MEQ TAB PO SCH ×2 (16:52→21:10)
[2016-05-30] MEDS: METOCLOPRAMIDE 10 MG/2 ML VIAL IVP SCH ×2 (16:52→19:29)
[2016-05-30 18:13] LABS: ALANINE AMINOTRANSFERASE 20 IU/L (9-52); ALBUMIN 3.1 g/dL (3.5-5.0); ALKALINE PHOSPHATASE 114 IU/L (38-126); ANION GAP 7 mEq/L (8-16); ASPARTATE AMINOTRANSFERASE 27 IU/L (14-46); BILIRUBIN,TOTAL 1.8 mg/dL (0.1-1.4); CALCIUM 8.3 mg/dL (8.5-10.4); CARBON DIOXIDE 29 mEq/l (22-31); CHLORIDE 98 mEq/L (97-110); GLOMERULAR FILTRATION RATE 57; GLUCOSE 121 mg/dL (70-100); POTASSIUM 3.7 mEq/L (3.5-5.2); SODIUM 134 mEq/L (134-144); TOTAL PROTEIN 5.5 g/dL (6.3-8.2)
--- NOTE | 2016-05-30 18:43 | SOAPPROG ---
SOAP Progress Note Assessment/Plan: Assessment: Hypoxemia/pulmonary infiltrates: Likely secondary to volume overload in the post open heart setting. Improved with diuresis. Status post open heart surgery. History of tobacco abuse, likely a component of COPD. On bronchodilator therapy , nebulized steroids. Obesity: With probable component of restrictive lung disease, associated bi- basilar atelectasis. Plan: Continue present bronchopulmonary therapies. Continue ambulation, mobilization. Continue diuresis. Follow x-ray and laboratory. Subjective: Doing okay, denies is significant chest pain. Denies shortness of breath. No cough or mucus currently. Objective: Vital Signs Temp Pulse Resp BP Pulse Ox 36.8 C 86 18 113/61 96 05/30/16 16:40 05/30/16 18:10 05/30/16 18:10 05/30/16 16:40 05/30/16 18:10 Laboratory Results 05/29/16 04:45 05/30/16 17:35 05/29/16 05/30/16 05/31/16 05:59 05:59 06:59 Intake Total 1090 1830 Output Total 437 1500.5 1185 Balance 653 329.5 -1185 Chest x-rays today showed pulmonary infiltrates, slightly better with diuresis this morning. Hypoventilatory changes and atelectasis persist. Physical Exam - Physical Exam General Appearance: alert, no apparent distress, obese, other (Up in chair) EENT: other (Nasal cannula at 5 L, improved.) Neck: normal inspection (Large neck. No obvious JVD.) Respiratory: decreased breath sounds (And excursions), rales (At bases), other ( Bronchial changes at bases), No rhonchi, No wheezing Cardiac/Chest: regular rate, rhythm Abdomen: normal bowel sounds, non-tender, soft (Overweight) Pelvic Exam: other (Good urine output with Lasix) Skin: normal color, warm/dry Extremities: pedal edema (Trace +) Neuro/Psych: no motor/sensory deficits, No cognition abnormalities ICD10 Worksheet Patient Problems: Problems Problem Status Onset Obesity (BMI 30-39.9) Chronic Acute blood loss anemia Acute S/P CABG x 3 Acute ~05/27/16 Diastolic CHF, chronic Chronic ALAN on CPAP Chronic Hyperlipidemia Chronic Pulmonary hypertension associated with systemic disorder Chronic Hypertension Chronic Coronary artery disease Chronic
[2016-05-31] MEDS: KETOROLAC 15 MG/1 ML SDV IVP PRN (05:36)
[2016-05-31] MEDS: ACETAMINOPHEN 325 MG TAB PO PRN ×2 (05:36→17:35)
[2016-05-31 06:02] LABS: HEMATOCRIT 26.6 % (38.0-47.0); HEMOGLOBIN 8.8 g/dL (12.6-16.3); MEAN CELL HEMOGLOBIN CONCENTR. 33.1 g/dL (32.4-36.7); MEAN CELL VOLUME 93.7 fL (81.5-99.8); RED BLOOD CELL COUNT 2.84 10^6/uL (4.18-5.33); RED CELL DISTRIBUTION WIDTH 14.1 % (11.5-15.2)
[2016-05-31 06:15] LABS: ANION GAP 10 mEq/L (8-16); CALCIUM 8.4 mg/dL (8.5-10.4); CARBON DIOXIDE 26 mEq/l (22-31); CHLORIDE 100 mEq/L (97-110); GLOMERULAR FILTRATION RATE 57; GLUCOSE 95 mg/dL (70-100); SODIUM 136 mEq/L (134-144)
[2016-05-31] MEDS: LEVALBUTEROL 1.25 MG/3 ML DEYVIAL IH SCH ×4 (07:08→20:13)
[2016-05-31] MEDS: INSULIN LISPRO 100 UNIT/ML SC SCH ×3 (08:29→17:35)
[2016-05-31] MEDS: ENOXAPARIN 40 MG/0.4 ML SYR SC SCH (08:30)
[2016-05-31] MEDS: OMEGA-3 FATTY ACIDS 1,000 MG CAP PO SCH (08:30)
[2016-05-31] MEDS: guaiFENesin 600 MG TAB.ER PO SCH ×2 (08:30→20:39)
[2016-05-31] MEDS: BUDESONIDE 0.5 MG/2 ML AMPUL.NEB IH SCH ×2 (08:30→20:13)
[2016-05-31] MEDS: POLYETHYLENE GLYCOL 3350 17 GM PKT PO SCH (08:30)
[2016-05-31] MEDS: POTASSIUM CL 20 MEQ TAB PO SCH ×2 (08:30→20:39)
[2016-05-31] MEDS: metFORMIN HCL 500 MG TAB PO SCH (08:30)
[2016-05-31] MEDS: ASCORBIC ACID 500 MG TAB PO SCH (08:30)
[2016-05-31] MEDS: METOPROLOL TARTRATE 25 MG TAB PO SCH ×2 (08:31→20:39)
[2016-05-31] MEDS: FUROSEMIDE 40 MG/4 ML VIAL IVP SCH (08:31)
[2016-05-31] MEDS: SENNOSIDES/DOCUSATE SODIUM TAB PO SCH ×2 (08:31→20:39)
[2016-05-31] MEDS: PANTOPRAZOLE SODIUM 40 MG TAB PO SCH (08:32)
[2016-05-31] MEDS: ASPIRIN 81 MG CHEWABLE TAB PO SCH (08:32)
--- NOTE | 2016-05-31 08:52 | SOAPPROG ---
SOAP Progress Note Assessment/Plan: Assessment: POD#4 CABG x 3 (DUSTIN-LAD, SV-D1, SV-PDA), prophylactic AtriClip LLAA , EVH LLE Sx CAD/recurrent ISR w preserved LV systolic fx - s/p CABG. Hemodynamically stable early postop course. Extubated without incident. Tubes and Vwire out. Secondary prevention with ASA, BB, and hypolipidemic. Hx of multi-statin intolerance. Defer trial of other statin, ?PCSK9 inhibitor to cards at outpt f/ u. Suspected metabolic syndrome - obesity, prediabetes, dyslipidemia. Postop hyperglycemia managed with insulin gtt. Transition to SSI as per protocol. IM consulted for diabetic counseling and oversight. Low dose metformin started and thus far well tolerated. Acute expected blood loss anemia - Stable. No blood transfusions. VTE prophylaxis with lovenox. Acute on chronic hypoxemic respiratory insufficiency (hx ALAN on CPAP, jail smoker, dCHF) - Recurrent nocturnal desats on home CPAP. Etiology likely multifactorial (habitus/RLD, narc analgesia/depressed insp effort, difficulty clearing secretions, gastric air) but principally volume overload. Now resolving on intensified diuresis as well as aggressive pulm toilet, adjusted analgesia and supportive therapies. Current everyday smoker - Up to 1ppd x 40 yrs. Motivated to quit. Cessation aids declined. Asx carotid disease - 60% LISA, 70-80% LICA stenoses. No apparent postop neuro deficits. Secondary prevention as per CAD. Surveillance per cards/PCP. HTN - with probable renal artery stenosis by preop US. Stent consideration once recovered from surgery. Plan: Transition from high dose IV to oral lasix x 1 more day. Resume usual Demadex in am. Cont inc activity and aggressive pulm toilet. Cont O2 wean. Dispo - Likely home next 24-48 hrs. 05/31/16 08:50 Subjective: Feeling much better. Breathing easier. Thinking clearer. Regaining functional independence. Hopeful for home tomorrow. Objective: Vital Signs Temp Pulse Resp BP Pulse Ox 36.6 C 69 16 112/48 L 95 05/31/16 07:40 05/31/16 08:31 05/31/16 07:40 05/31/16 08:31 05/31/16 07:40 Laboratory Results 05/31/16 05:40 05/31/16 05:40 05/30/16 05/31/16 06/01/16 04:59 05:59 05:59 Intake Total Output Total Balance HR and BP controlled. 4L UOP with stable lytes and renal fx. Suppl O2 req down to 5 Lpm. CXR-> marked improvement in aeration w inc lung volume, decr pulm vasc congestion and decr atelectasis. CTOP well below removal criteria. - Pending Discharge Pending Discharge Within 48 Hours: Yes Pending Discharge Date: 06/02/16 Pending Discharge Time: 11:00 Physical Exam - Physical Exam General Appearance: alert, no apparent distress Respiratory: crackles (rt base), other (mediastinal lexi x 1 to bulb suction, serous drainage; drain removed without incident) Cardiac/Chest: regular rate, rhythm, other (Sternum grossly stable. Sternotomy and LLE venotomy CDI) Abdomen: non-tender, soft Skin: warm/dry Extremities: swelling (1+ ) ICD10 Worksheet Patient Problems: Problems Problem Status Onset Acute blood loss anemia Acute S/P CABG x 3 Acute ~05/27/16 Diastolic CHF, chronic Chronic ALAN on CPAP Chronic Obesity (BMI 30-39.9) Chronic Coronary artery disease Chronic Hyperlipidemia Chronic Hypertension Chronic Pulmonary hypertension associated with systemic disorder Chronic
[2016-05-31] MEDS ORDERED: FUROSEMIDE 80 MG TAB PO ONE (15:00)
--- NOTE | 2016-05-31 18:09 | SOAPPROG ---
SOAP Progress Note Assessment/Plan: Assessment: Hypoxemia/pulmonary infiltrates: Likely secondary to volume overload in the post open heart setting. Improved with diuresis. Postoperative atelectasis is present as well. Status post open heart surgery. History of tobacco abuse, likely a component of COPD. On bronchodilator therapy , nebulized steroids. Stable. Likely will need to go home on oxygen and continued bronchodilator treatment with at least metered-dose inhalers. Obesity: With probable component of restrictive lung disease. History of obstructive sleep apnea: On CPAP. Plan: Continue present bronchopulmonary therapies. Continue ambulation, mobilization. Continue diuresis. Follow x-ray and laboratory. Outpatient follow-up with myself at some point in the future, after she is recovered from her open heart surgery is recommended. Pulmonary function studies will be obtained, treatment for COPD arranged as needed, ALAN assessed, etc. Subjective: Doing well. Still has some subjective shortness of breath, feels that she cannot get a deep breath in. No cough or mucus, no fevers or chills. Objective: Vital Signs Temp Pulse Resp BP Pulse Ox 36.6 C 86 16 123/84 H 92 05/31/16 15:50 05/31/16 15:50 05/31/16 15:50 05/31/16 15:50 05/31/16 15:50 Laboratory Results 05/31/16 05:40 05/31/16 05:40 05/30/16 05/31/16 06/01/16 04:59 05:59 05:59 Intake Total 700 Output Total Balance 700 CXR: Improved infiltrates status post diuresis compared to yesterday. By basilar atelectasis persists. Physical Exam - Physical Exam General Appearance: alert, no apparent distress EENT: other (Nasal cannula or OxyMask at 3 L) Neck: normal inspection (Large neck) Respiratory: decreased breath sounds, rales (Bibasilar rales with bronchial changes/E to A's bilaterally.), No lungs clear, No normal breath sounds Cardiac/Chest: regular rate, rhythm Abdomen: normal bowel sounds, non-tender, soft Skin: normal color, warm/dry Extremities: pedal edema (Trace lower extremity edema) Neuro/Psych: no motor/sensory deficits, No cognition abnormalities ICD10 Worksheet Patient Problems: Problems Problem Status Onset Obesity (BMI 30-39.9) Chronic Acute blood loss anemia Acute S/P CABG x 3 Acute ~05/27/16 Diastolic CHF, chronic Chronic ALAN on CPAP Chronic Hyperlipidemia Chronic Pulmonary hypertension associated with systemic disorder Chronic Hypertension Chronic Coronary artery disease Chronic
[2016-06-01] MEDS: HYDROCODONE/APAP 5/325 TAB PO PRN ×2 (05:03→13:55)
[2016-06-01] MEDS: LEVALBUTEROL 1.25 MG/3 ML DEYVIAL IH SCH (05:21)
[2016-06-01 06:46] LABS: HEMATOCRIT 25.4 % (38.0-47.0); HEMOGLOBIN 8.2 g/dL (12.6-16.3)
[2016-06-01 07:15] LABS: POTASSIUM 3.8 mEq/L (3.5-5.2)
[2016-06-01 08:12] VITALS: RESP 16
[2016-06-01] MEDS ORDERED: SENNOSIDES/DOCUSATE SODIUM TAB PO PRN (08:40)
[2016-06-01] MEDS ORDERED: TORSEMIDE 20 MG TAB PO SCH (09:00)
[2016-06-01] MEDS ORDERED: FLUTICASONE HFA 110 MCG MDI IH SCH (09:00)
--- NOTE | 2016-06-01 09:13 | SOAPPROG ---
SOAP Progress Note Assessment/Plan: Assessment: POD#5 CABG x 3 (DUSTIN-LAD, SV-D1, SV-PDA), prophylactic AtriClip LLAA , EVH LLE Sx CAD/recurrent ISR w preserved LV systolic fx - s/p CABG. Hemodynamically stable early postop course. Extubated without incident. Tubes and Vwire out. Secondary prevention with ASA, BB, and hypolipidemic. Hx of multi-statin intolerance. Defer trial of other statin +/- PCSK9 inhibitor to cards at outpt f /u. Suspected metabolic syndrome - obesity, prediabetes, dyslipidemia. Postop hyperglycemia managed with insulin gtt. Transition to SSI as per protocol. IM consulted for diabetic counseling and oversight. Low dose metformin started and thus far well tolerated. Acute expected blood loss anemia - Stable. No blood transfusions. VTE prophylaxis with lovenox. Acute on chronic hypoxemic respiratory insufficiency (hx ALAN on CPAP, retirement smoker, dCHF) - Recurrent nocturnal desats on home CPAP. Etiology likely multifactorial (habitus/RLD, narc analgesia/depressed insp effort, difficulty clearing secretions, gastric air) but principally volume overload. Now resolving on intensified diuresis as well as aggressive pulm toilet, adjusted analgesia and supportive therapies. Current everyday smoker - Up to 1ppd x 40 yrs. Motivated to quit. Cessation aids declined. Asx carotid disease - 60% LISA, 70-80% LICA stenoses. No apparent postop neuro deficits. Secondary prevention as per CAD. Surveillance per cards/PCP. HTN - with probable renal artery stenosis by preop US. Stent consideration once recovered from surgery. Plan: Resume Demadex. Inc dosing to BID until back to baseline wt. Change nebs to Flovent as per pulm recs. Cont inc activity and aggressive pulm toilet. Cont O2 wean. Dispo - Likely home this afternoon vs tomorrow. 06/01/16 09:02 Subjective: Feels great. +BM. Eager for shower and home. Objective: Vital Signs Temp Pulse Resp BP Pulse Ox 36.7 C 71 16 118/55 L 98 06/01/16 08:00 06/01/16 08:00 06/01/16 08:00 06/01/16 08:00 06/01/16 08:00 Laboratory Results 06/01/16 06:35 06/01/16 06:35 05/31/16 06/01/16 06/02/16 05:59 05:59 05:59 Intake Total 1150 Output Total Balance 1150 HR and BP controlled. Suppl O2 req down to 2-3 Lpm. CXR-> cont improvement in aeration. Addtl 0.7kg loss overnoc. Now within 3 kg baseline wt. FSBG 90s-170s. Physical Exam - Physical Exam General Appearance: alert, no apparent distress Respiratory: crackles (few; improved BS rt base) Cardiac/Chest: regular rate, rhythm, other (Sternotomy and LLE ventomy CDI) Abdomen: non-tender, soft Skin: warm/dry Extremities: swelling (1+) ICD10 Worksheet Patient Problems: Problems Problem Status Onset Acute blood loss anemia Acute S/P CABG x 3 Acute ~05/27/16 Diastolic CHF, chronic Chronic ALAN on CPAP Chronic Obesity (BMI 30-39.9) Chronic Coronary artery disease Chronic Hyperlipidemia Chronic Hypertension Chronic Pulmonary hypertension associated with systemic disorder Chronic
[2016-06-01] MEDS: guaiFENesin 600 MG TAB.ER PO SCH (09:37)
[2016-06-01] MEDS: OMEGA-3 FATTY ACIDS 1,000 MG CAP PO SCH (09:37)
[2016-06-01] MEDS: ENOXAPARIN 40 MG/0.4 ML SYR SC SCH (09:37)
[2016-06-01] MEDS: POLYETHYLENE GLYCOL 3350 17 GM PKT PO SCH (09:37)
[2016-06-01] MEDS: ASPIRIN 81 MG CHEWABLE TAB PO SCH (09:38)
[2016-06-01] MEDS: METOPROLOL TARTRATE 25 MG TAB PO SCH (09:38)
[2016-06-01] MEDS: POTASSIUM CL 20 MEQ TAB PO SCH (09:38)
[2016-06-01] MEDS: ASCORBIC ACID 500 MG TAB PO SCH (09:38)
[2016-06-01] MEDS: metFORMIN HCL 500 MG TAB PO SCH (09:39)
[2016-06-01] MEDS: INSULIN LISPRO 100 UNIT/ML SC SCH (11:12)
[2016-06-01 11:40] VITALS: BP 132/81; PULSE 70; TEMP 97.3; O2SAT 93
--- NOTE | 2016-06-01 14:38 | PDDCSUM ---
Discharge Summary Discharge Summary: Discharge Summary DATE OF ADMISSION: 05/27/16 DATE OF DISCHARGE: 06/01/16 DISPOSITION: Home, self-care. PRINCIPAL ADMISSION DIAGNOSIS: Class 3 angina with severe coronary artery disease PRINCIPAL DISCHARGE DIAGNOSES: 1. Metabolic syndrome suspected. 2. Status post coronary artery bypass grafting x 3. 3. Status post prophylactic ligation of the left atrial appendage. 4. Acute expected blood loss anemia. 5. Acute on chronic hypoxemic respiratory insufficiency. HISTORY OF PRESENT ILLNESS: 56 yo female with longstanding cardiac hx, intermittent chest pains, worsening exertional dyspnea, and angiographic evidence of complex 2 vessel CAD admitted for elective CABG. PERTINENT PAST MEDICAL HISTORY: 1. CAD - s/p stenting of the RCA in 2003, stenting of the LAD in early 2007, and repeat PCI of LAD for ISR in late 2007. 2. Asymptomatic carotid artery disease - 60% LISA stenosis, 70-80% LICA stenosis by preop Neck CTA 3. Prediabetes - by preop A1c of 6.5%. 4. Severe ALAN, on CPAP. 5. Obesity, BMI 35-40. 6. HTN - with probable left renal artery stenosis by preop US. 7. Moderate pulmonary HTN. 8. Chronic edema - resistant to lasix or HCTZ; controlled on demadex; presumed diastolic CHF. 9. Hyperlipidemia - intolerant to statins. Preop lipid profile: TC 215, LDL 145 , HDL 35, TG 177. 10. Tobacco abuse - 1/2 to 1 ppd x 40 yrs. Trying to quit. Smoking cessation aids declined. MEDICATIONS ON ADMISSION: ASA 81 mg daily, Vit C 1,000 mg daily, Metoprolol tartrate 25 mg BID, Torsemide 20 mg daily, Fish oil 1,000 mg daily, Herbal supplement once daily, Adderall 5 mg daily, Zantac 150 mg hs prn. ALLERGIES: Lipitor causing myalgias, Pravastatin causing a cough and rash CONSULTANTS: Pulmonology/critical care ([place]), Internal medicine ([place]) PROCEDURES/IMAGIN/8 (Carlos): Coronary artery bypass grafting x 3 (DONG-LAD, SV-D1, SV-PDA). Takedown DONG. Endoscopic vein harvest LLE. Prophylactic AtriClip ligation of the left atrial appendage. ABBREVIATED HOSPITAL COURSE: Admitted on the day of surgery and taken to the OR where 3 vessel coronary bypass completed without any apparent complications. Target vessels measured 1.8 to 2.5 mm in diameter and bypassed with excellent quality conduit. Easily from CPB with preserved BiV systolic function and intact valvular function. Transferred to the ICU in hemodynamically stable condition without vasoactive support or need for blood, blood products or backup pacing. Immediate extubation delayed by acidosis but tube able to be pulled within a few hours. Postop course notable for ongoing hypoxemia, congestion, and loose cough, especially when in bed or sleeping. Underlying COPD, RLD, and pulmonary edema suspected. Respiratory treatments (incl bronchodilators, mucolytics and inhaled steroids) and IV diuresis intensified with good effect. Continued improvements in inspiratory effort once chest tubes removed. Counseled to use CPAP with naps, sleep in a semi-recumbent position, avoid smoking, and pursue pulmonary function studies once recovered from surgery. Glycemic control monitored by Int Med and started on metformin once eating well. Initiation of adjunctive hypolipidemics deferred to cardiology at outpatient followup. DISCHARGE CLINICAL INFORMATION: Sternum grossly stable. Sternotomy and LLE venotomy CDI, sutured, +Dermabond. HR 70s. SBP 120s. SpO2 83% RA, 93% 2 Lpm rest, 3 Lpm ambulation. Wt 2.7 kg above admission at 111 kilos. Hgb 8.2, HCT 25.4, Plt 197, Na 136, K 3.8, BUN 25, Cr 1.0 FSBG 90s-150s. DISCHARGE MEDICATIONS: As on admission with the following adjustment: Increase Torsemide to 20 mg BID thru 06/05, then resume once daily. NEW prescriptions: 1. Flovent Hfa 110 mcg, 1 puff BID 2. Mucinex 600 mg, 2 tabs BID thru 06/05 then 1 tab BID x 2 weeks. 3. Klor-Con 20 mEq daily while on twice daily Torsemide. 4. Metformin 500 mg daily. 5. [place] 5/325, 1 tab q 4-6 hrs prn incisional discomfort 6. Oxygen continuously at 2 Lpm and 3 Lpm activity, or as directed by SpO2. FOLLOW UP APPOINTMENTS: 1. Cardiology: with Dr Malik at [facility] within 4-6 weeks. Appointment to be established during surgical visit: Lipid management, carotid surveillance 2. CV surgery: with Dr Gonzalez at [facility] on 06/09 at 9:15 am. 3. Pulmonology: with Dr Falcon at [facility] in 2-3 weeks or as directed: review MDIs, schedule PFTs. 4. PCP: with Dr Whittington in 1-2 weeks or as directed: Diabetic counseling, Metformin tolerance, smoking cessation. FOLLOW UP TESTING: CXR prior to surgical appointment.
== END 2016-06-01 14:40 | disposition home or self-care (01) | DRG 235 ==
LOC: F2W 06:59 → F2N 07:27 → F2W 05-28 15:19
PROVIDERS: ADMIT Thoracic Surgery (Cardiothoracic Vascular Surgery); ATTEND Thoracic Surgery (Cardiothoracic Vascular Surgery)
PROC: 5A1221Z Performance of Cardiac Output, Continuous (ICD-10-PCS; principal; 2016-05-27 08:15)
PROC: 02L70ZK Occlusion of Left Atrial Appendage, Open Approach (ICD-10-PCS; principal; 2016-05-27 08:15)
PROC: 021109W Bypass Coronary Artery, Two Arteries from Aorta with Autologous Venous Tissue, Open Approach (ICD-10-PCS; principal; 2016-05-27 08:15)
PROC: 02100Z9 Bypass Coronary Artery, One Artery from Left Internal Mammary, Open Approach (ICD-10-PCS; principal; 2016-05-27 08:15)
PROC: 06BQ4ZZ Excision of Left Saphenous Vein, Percutaneous Endoscopic Approach (ICD-10-PCS; principal; 2016-05-27 08:15)
DX: I25.119 Atherosclerotic heart disease of native coronary artery with unspecified angina pectoris (principal); I25.82 Chronic total occlusion of coronary artery; T82.855A Stenosis of coronary artery stent, initial encounter; J95.1 Acute pulmonary insufficiency following thoracic surgery; E88.81 Metabolic syndrome and other insulin resistance; D62 Acute posthemorrhagic anemia; J44.9 Chronic obstructive pulmonary disease, unspecified; Z95.5 Presence of coronary angioplasty implant and graft; E87.70 Fluid overload, unspecified; R73.03 Prediabetes; J98.11 Atelectasis; I50.30 Unspecified diastolic (congestive) heart failure; G47.33 Obstructive sleep apnea (adult) (pediatric); E66.9 Obesity, unspecified; Z68.35 Body mass index [BMI] 35.0-35.9, adult; I10 Essential (primary) hypertension; I70.1 Atherosclerosis of renal artery; I70.8 Atherosclerosis of other arteries; I27.2 Other secondary pulmonary hypertension; E78.5 Hyperlipidemia, unspecified; F17.210 Nicotine dependence, cigarettes, uncomplicated; K76.0 Fatty (change of) liver, not elsewhere classified; Z79.82 Long term (current) use of aspirin
CPT/HCPCS: 82947-QW; 97116-GP; 97162-GP; 97166-GO; 97530-GO; 97530-GP; 97535-GO; J0153; J0282; J0690; J1170; J1265; J1644; J1650; J1815; J1885; J2001; J2150; J2250; J2260; J2370; J2440; J2704; J2720; J2765; J2930; J3010; J7060; J7626; P9041

== ENCOUNTER → 2016-06-09 | Outpatient (CLI) | payer OTHER | LOC: FIMAGING 09:13 | PROVIDERS: ATTEND Physician Assistant Surgical | DX: J98.11 Atelectasis (principal) ==